=== PATIENT | female | born 1980 | race African-American/Black ===

== ENCOUNTER 2018-05-10 16:00 | Emergency (ER) | payer MEDICAID ==
--- NOTE | 2018-05-10 16:40 | EDPHY ---
HPI/HX/ROS/PE/MDM Narrative: CHIEF COMPLAINT: Chest pain HISTORY OF PRESENT ILLNESS: This is a 37-year-old female with history of insulin-dependent diabetes, hypertension, hypercholesterolemia, smoker, who presents today reporting that since 2:00 a.m. This morning she has had intermittent episodes of chest tightness, lasting 5-10 minutes. Patient notes that the symptoms seem to occur when she is exerting herself, coughing, or sneezing. She has not had the symptoms previously. She has been sick with an upper respiratory infection for several days, no fever, occasional cough, minimal sputum. Denies diaphoresis, radiation of the discomfort, nausea, vomiting, or dyspnea. No fever, chills, palpitations, vomiting, diarrhea, urinary complaints, headache , lightheadedness. REVIEW OF SYSTEMS: A comprehensive 10 system review of systems was reviewed and is otherwise negative aside from elements mentioned in the history of present illness and medical decision making. PAST MEDICAL HISTORY: Diabetes, hypertension, hypercholesterolemia. Family history of coronary artery disease in a father and grandmother at a young age. SOCIAL HISTORY: Smoker. Denies cocaine, methamphetamines. VITAL SIGNS Reviewed by me. 159/123. GENERAL: Overweight female, no obvious distress. Has a hoarse voice and somewhat congested sounding. HEENT: Atraumatic. Eyes: No icterus, no injection. Mouth: moist mucous membranes. No erythema or lesions. Neck: supple with no adenopathy. LUNGS: Somewhat diminished breath sounds throughout, no wheezing rhonchi or rales. CARDIAC: Regular rate and rhythm, no rubs, murmurs or gallops. ABDOMEN: Soft, nontender, nondistended, bowel sounds normal. BACK: No CVA tenderness. EXTREMITIES: No trauma. No edema. Range of motion is normal throughout. NEURO: Alert and oriented, grossly nonfocal. SKIN: Warm and dry, no rash. PSYCHIATRIC: Normal mentation, no agitation. (Lawanda Rooney) ED Course: EKG obtained: Normal sinus rhythm, no ST or T-wave changes. Patient takes aspirin every day and took her typical 325 mg of aspirin today. Labs including bedside troponin ordered. Chest x-ray ordered. Bedside troponin 0.00 HEART SCORE: HISTORY 1 EKG 0 AGE 2 RISK FACTORS 2 TROPONIN 0 SCORE OF 3. Patient's care assumed by Dr. Pritesh Barksdale at 5:00 p.m.. Chest x-ray and labs are pending. (Lawanda Rooney) MDM: After history and physical examination, the differential for chest pain was considered, including but not limited to, myocardial ischemia, acute coronary syndrome, pulmonary embolus, chest wall pain, pleural inflammation and pulmonary infectious causes. (Lawanda Rooney) I assumed care from Dr. Rooney. CXR and labs are unremarkable with the exception of moderate hyperglycemia. On my exam, patient is quite comfortable. I had an extensive discussion with her regarding options, including discharge with cardiology follow-up vs. admission. She initially expressed interest in admission, and asked me to inquire what this would entail. In discussion with the hospitalist, it is unlikely that a nuc stress test would be available over the weekend, which is the test she would likely need, so I informed her that her care would likely consist of monitoring and serial troponins. Given this, she is now declining admission and would like to go home after a repeat troponin performed. She understands that she is taking some risk by making this decision, and promises to return to the ED should chest pain recur. Repeat troponin still negative. I re-discussed options with patient and she would still like to be discharged home. (Pritesh Barksdale) - Data Points Imaging Results: Imaging Impressions Chest X-Ray 05/10/18 16:15 Impression: Normal chest. Laboratory Results: Laboratory Results 05/10/18 16:35 05/10/18 16:35 05/10/18 05/10/18 05/10/18 18:10 16:41 16:35 WBC RBC Hgb Hct MCV MCH MCHC RDW Plt Count MPV Neut % (Auto) Lymph % (Auto) Borden % (Auto) Eos % (Auto) Baso % (Auto) Nucleat RBC Rel Count Absolute Neuts (auto) Absolute Lymphs (auto) Absolute Monos (auto) Absolute Eos (auto) Absolute Basos (auto) Absolute Nucleated RBC Immature Gran % Immature Gran # Sodium Potassium Chloride Carbon Dioxide Anion Gap BUN Creatinine Estimated GFR Glucose Calcium Total Bilirubin Conjugated Bilirubin Unconjugated Bilirubin AST ALT Alkaline Phosphatase POC Troponin I 0.01 ng/mL ng/mL 0.00 ng/mL ng/mL (0.00-0.08) (0.00-0.08) Total Protein Albumin Lipase Beta HCG, Qual NEGATIVE 05/10/18 05/10/18 16:35 16:35 WBC 8.70 10^3/uL 10^3/uL (3.80-9.50) RBC 4.75 10^6/uL 10^6/uL (4.18-5.33) Hgb 13.9 g/dL g/dL (12.6-16.3) Hct 42.2 % % (38.0-47.0) MCV 88.8 fL fL (81.5-99.8) MCH 29.3 pg pg (27.9-34.1) MCHC 32.9 g/dL g/dL (32.4-36.7) RDW 13.5 % % (11.5-15.2) Plt Count 278 10^3/uL 10^3/uL (150-400) MPV 10.6 fL fL (8.7-11.7) Neut % (Auto) 67.8 % % (39.3-74.2) Lymph % (Auto) 23.9 % % (15.0-45.0) Borden % (Auto) 5.5 % % (4.5-13.0) Eos % (Auto) 1.4 % % (0.6-7.6) Baso % (Auto) 0.9 % % (0.3-1.7) Nucleat RBC Rel Count 0.0 % % (0.0-0.2) Absolute Neuts (auto) 5.90 10^3/uL 10^3/uL (1.70-6.50) Absolute Lymphs (auto) 2.08 10^3/uL 10^3/uL (1.00-3.00) Absolute Monos (auto) 0.48 10^3/uL 10^3/uL (0.30-0.80) Absolute Eos (auto) 0.12 10^3/uL 10^3/uL (0.03-0.40) Absolute Basos (auto) 0.08 10^3/uL 10^3/uL (0.02-0.10) Absolute Nucleated RBC 0.00 10^3/uL 10^3/uL (0-0.01) Immature Gran % 0.5 % % (0.0-1.1) Immature Gran # 0.04 10^3/uL 10^3/uL (0.00-0.10) Sodium 136 mEq/L mEq/L (135-145) Potassium 4.1 mEq/L mEq/L (3.5-5.2) Chloride 105 mEq/L mEq/L (97-110) Carbon Dioxide 24 mEq/l mEq/l (22-31) Anion Gap 7 mEq/L mEq/L (6-14) BUN 12 mg/dL mg/dL (7-23) Creatinine 0.7 mg/dL mg/dL (0.6-1.0) Estimated GFR > 60 Glucose 243 mg/dL H mg/dL (70-100) Calcium 9.3 mg/dL mg/dL (8.5-10.4) Total Bilirubin 0.4 mg/dL mg/dL (0.1-1.4) Conjugated Bilirubin 0.4 mg/dL mg/dL (0.0-0.5) Unconjugated Bilirubin 0.0 mg/dL mg/dL (0.0-1.1) AST 14 IU/L IU/L (14-46) ALT 22 IU/L IU/L (9-52) Alkaline Phosphatase 110 IU/L IU/L (38-126) POC Troponin I Total Protein 6.6 g/dL g/dL (6.3-8.2) Albumin 3.7 g/dL g/dL (3.5-5.0) Lipase 106 IU/L IU/L (23-300) Beta HCG, Qual Point of Care Test Results: Chemistry 05/10/18 05/10/18 18:10 16:41 POC Troponin I 0.01 ng/mL ng/mL 0.00 ng/mL ng/mL (0.00-0.08) (0.00-0.08) General Time Seen by Provider: 05/10/18 16:13 Initial Vital Signs: Initial Vital Signs Temperature (C) 37.3 C 05/10/18 16:03 Heart Rate 89 05/10/18 16:03 Respiratory Rate 18 05/10/18 16:03 Blood Pressure 159/123 H 05/10/18 16:03 O2 Sat (%) 96 05/10/18 16:03 O2 Delivery Mode Room Air Allergies/Adverse Reactions: codeine Allergy (Verified 05/10/18 16:03) Departure - Departure Disposition: Home, Routine, Self-Care Clinical Impression: Chest pain Condition: Good Instructions: Chest Pain (ED) Additional Instructions: Follow-up with your primary doctor within 72 hours. Return to the Emergency Department for fever, chest pain, shortness of breath, increasing pain or other worsening of condition. Follow up with a claims adjuster crop for further testing, as soon as possible, within one week. As we discussed, it is impossible to fully rule out heart disease as the cause of your chest pain in the emergency department. We would be happy to reevaluate you and observe you in the hospital at any time. Referrals: NONE *PRIMARY CARE P,. [Primary Care Provider] - As per Instructions Wiliam Palmer MD [Medical Doctor] - As per Instructions
--- NOTE | 2018-05-10 17:05 | CPEKG ---
Test Reason : OPEN Blood Pressure : / mmHG Vent. Rate : 087 BPM Atrial Rate : 086 BPM P-R Int : 154 ms QRS Dur : 084 ms QT Int : 348 ms P-R-T Axes : 046 055 012 degrees QTc Int : 419 ms Sinus rhythm Confirmed by Lawanda Rooney ([id number]) on 05/10/2018 5:04:58 PM Referred By: Lawanda Rooney Confirmed By:Lawanda Rooney
[2018-05-10 17:14] LABS: PLATELET COUNT 278 10^3/uL (150-400)
[2018-05-10 18:04] VITALS: BP 151/104
== END 2018-05-10 18:38 | disposition home or self-care (01) ==
DX: R07.9 Chest pain, unspecified (principal); E11.9 Type 2 diabetes mellitus without complications; I10 Essential (primary) hypertension; E78.00 Pure hypercholesterolemia, unspecified; F17.200 Nicotine dependence, unspecified, uncomplicated; Z79.4 Long term (current) use of insulin
CPT/HCPCS: 84484-ER